=== PATIENT | male | born 1965 | race Caucasian/White ===

== ENCOUNTER 2017-09-19 16:49 | Emergency (ER) | payer OTHER ==
[2017-09-19] MEDS: DIPHTH,PERTUSS(ACELL),TET TOX 0.5 ML DISP.SYRIN. VAX IM ×2 (17:15→18:45)
[2017-09-19] MEDS: LIDOCAINE 1% Multi-Dose 20 ML VIAL. ID (18:44)
== END 2017-09-19 19:45 | disposition home or self-care (01) ==
LOC: ER 16:49
DX: S01.511A Laceration without foreign body of lip, initial encounter (principal); S01.512A Laceration without foreign body of oral cavity, initial encounter; M53.3 Sacrococcygeal disorders, not elsewhere classified; M79.7 Fibromyalgia; Y04.0XXA Assault by unarmed brawl or fight, initial encounter; Y93.89 Activity, other specified; Y99.8 Other external cause status; Y92.89 Other specified places as the place of occurrence of the external cause
CPT/HCPCS: 12011; 70450; 70486; 72125; 72220; 73030; 99284-25